=== PATIENT | male | born 1975 | race Caucasian/White ===

== ENCOUNTER 2023-01-30 18:40 | Emergency (ER) | payer OTHER ==
[2023-01-30] MEDS ORDERED: Diphtheria,Pertussis(Acell),Tetanus Vaccine 0.5 ML Syringe IM ONE (19:47)
[2023-01-30] MEDS ORDERED: Lidocaine 1% 5 ML VIAL INJECT STA (21:02)
[2023-01-30] MEDS ORDERED: Cephalexin 500 MG Cap PO STA (22:53)
== END 2023-01-30 23:15 | disposition home or self-care (01) ==
LOC: MW.ED 18:40
DX: S61.012A Laceration without foreign body of left thumb without damage to nail, initial encounter (principal); Z23 Encounter for immunization; W22.8XXA Striking against or struck by other objects, initial encounter; Y93.39 Activity, other involving climbing, rappelling and jumping off
CPT/HCPCS: 12001; 73120; 73140; 90471; 90715; 99283; A9270; J3490